=== PATIENT | male | born 1980 | race Two or more races ===

== ENCOUNTER 2023-11-21 20:19 | Emergency (ER) | payer SELFPAY ==
--- NOTE | 2023-11-21 20:29 | ECG_ITS ---
Test Reason : UNRESPONSIVE Blood Pressure : / mmHG Vent. Rate : 098 BPM Atrial Rate : 098 BPM P-R Int : 126 ms QRS Dur : 088 ms QT Int : 350 ms P-R-T Axes : 074 067 066 degrees QTc Int : 446 ms Normal sinus rhythm Normal ECG No previous ECGs available Referred By: Generic ED Physician Electronically Signed By:GIUSEPPE TORRES
[2023-11-21 20:32] VITALS: BP 111/71; BP 112/72; PULSE 100; RESP 24; TEMP 36.7; O2SAT 85; O2SAT 99; BMI 22.7
[2023-11-21 20:32] LABS: Glucose, Whole Blood 88 mg/dL (60-115)
--- NOTE | 2023-11-21 20:32 | ED.GENADULT ---
HPI - General Adult General Chief complaint: Overdose Stated complaint: SEIZURE Time Seen by Provider: 11/21/23 20:29 History of Present Illness ED Provider: Dr. Hope HPI narrative: 43 y/o M patient; PMH opioid use disorder on methadone, heroin use disorder; presents from home via EMS with report of unresponsive episode. Per EMS, patient's friend called 911 when he was seen to stiffen up and have generalized shaking. This was not described as tonic clonic. He did not have tongue bitting or incontinence. EMS provide Versed 2mg IV twice. The patient was noted t become apneic with approx 6 respirations per minute. Patient seen immediately as he was being bagged with a BVM by EMS in the hallway. Noted to be apneic with approx 6 breaths a minute. Pinpoint pupils bilaterally. He was provided Narcan 0.4mg IV with immediate effect. The patient began breathing on his own and within 1 - 2 minutes was sitting up reporting he used a significant amount of heroin immediately prior to arrival. He also states he did not take his methadone today as he does not like to mix drugs . Related Data Previous Rx's ?Medication ?Instructions ?Recorded naloxone 4 mg/actuation nasal 4 mg intranasal Q3M PRN opioid 11/21/23 spray (Narcan) overdose #2 ea Allergies Allergy/AdvReac Type Severity Reaction Status Date / Time No Known Allergies Allergy Verified 11/21/23 20:37 Review of Systems Review of Systems: Yes all other systems are reviewed and are negative PMFSH Past Medical History Attestation statement: The following information was validated with the patient. Source: unable to obtain Social History Social History Do you have a plan to hurt others: No Plan Physical Exam ED Vital Signs: Vital Signs - 24 hr 11/21/23 20:32 Temperature 98.0 F Pulse Rate 100 Respiratory Rate 24 H Blood Pressure 111/71 Pulse Oximetry 99 Oxygen Delivery Method Room Air BMI result Body Mass Index 22.7 Const General: cooperative and no acute distress HENMT Head: Yes normal to inspection and Yes atraumatic Eyes General: appearance normal, both eyes and all related structures Pupils: Equal, round and reactive pupils present Neck Neck: Yes normal visual inspection, Yes full ROM, Yes supple and No tender Chest Chest palpation & inspection: normal inspection of the chest and normal palpation of entire chest wall Resp Effort & Inspection: normal respiratory effort, able to speak in complete sentences, no cough and no respiratory distress Auscultation: clear to auscultation bilaterally Cardio Rate: regular rate Rhythm: regular rhythm Peripheral pulses: Peripheral pulses 2+ throughout GI Inspection: Yes normal to inspection, No Abdominal wall edema and No distended Palpation (GI): Soft to palpation, not firm, nontender, no guarding and not rigid Auscultation: normal bowel sounds Back/Spine/Pelvis Back: No back tenderness Neuro Cranial nerves: Yes Equal, round and reactive pupils present Course Course Course Narrative: Patient is now awake and alert. Will plan on period of observation on end-tital to ensure he will not need further narcan. Plan: Transition care to Dr. Grace pending re-evaluation and disposition Condition: stable Medical Decision Making Lab Data Labs: Lab Results 11/21/23 11/21/23 11/21/23 Range/Units 20:27 20:28 20:41 Hold Purple Top SEE NOTE Hold Blue Top SEE NOTE VBG pH 7.29 L (7.32-7.43) VBG pCO2 51 mmHg VBG pO2 210 mmHg VBG HCO3 25 (22-26) mmol/L VBG O2 Saturation 99.0 % VBG Base Excess -1.6 mmol/L POC Glucose 88 (60-115) mg/dL Hold Green Top See Note Hold Yellow Top Cancelled Critical Care Time Critical Care Time Critical Care Time: Yes Total Critical Care Time: 38 Attestation: Total critical care time: Approximately?38?minutes Due to a high probability of clinically significant, life threatening deterioration, the patient required my highest level of preparedness to intervene emergently and I personally spent this critical care time directly and personally managing the patient. This critical care time included obtaining a history; examining the patient; pulse oximetry; ordering and review of studies; arranging urgent treatment with development of a management plan; evaluation of patient's response to treatment; frequent reassessment; and, discussions with other providers. This critical care time was performed to assess and manage the high probability of imminent, life-threatening deterioration that could result in multi-organ failure. It was exclusive of separately billable procedures and treating other patients? Discharge Plan Discharge Clinical Impression: Drug overdose Patient Disposition: Still a Patient Instructions: Adult Overdose (ED) Additional Instructions: As we discussed, you were seen today when you stopped breathing due to a drug overdose. You required narcan to start breathing again. Highly recommend you stop your recreational drug use. Please follow up with your PCP within the next 1 - 2 days for re-evaluation and to discuss your recent emergency department visit. Prescriptions: New naloxone [Narcan] 4 mg/actuation spray,non-aerosol 4 mg intranasal Q3M PRN (Reason: opioid overdose) Qty: 2 0RF Rx Instructions: spray 1 dose into ONE nostril; alternate nostrils w each dose until help arrives
[2023-11-21 20:40] VITALS: RESP 34
[2023-11-21 20:44] LABS: VBG Base Excess -1.6 mmol/L; VBG HCO3 25 mmol/L (22-26); VBG pCO2 51 mmHg; VBG pH 7.29 (7.32-7.43); VBG pO2 210 mmHg
[2023-11-21 22:15] VITALS: BP 100/66; PULSE 69; RESP 10; TEMP 36.8; O2SAT 96
--- NOTE | 2023-11-21 22:24 | MHC.EDTECH ---
This Tech assumed care of this pt upon arrival. Pt came in by EMS unresponsive as Woody Hare. PT belongings were cut off for cardiac lead placement and EKG. Pt given NARCAN and is now responsive. RKG done and handed to a provider bloodwork sent to the lab for processing
[2023-11-22 00:44] VITALS: BP 119/73; PULSE 76; RESP 12; TEMP 36.8; O2SAT 95
--- NOTE | 2023-11-22 03:38 | PC.NURSE ---
Late entry: PT arrived via ems for unresponsiveness/possible seizure. PT friend called ems to report pt fell unconscious and when EMS arrive they noted pt to be in full status seizure, locked but not tonic clonic. 4mg of versed given in field pt then stopped breathing. PT arrived unconscious, and being bagged at 6 breaths per minute. Narc .4mg given in ED. Pt then became responsive, a/ox2, breathing on room air. EKG submitted. PT drowsy and unsteady on his feet at this time. Plan is for pt to become more alert and wake before discharge home
[2023-11-22 04:00] VITALS: RESP 18
--- NOTE | 2023-11-22 05:49 | PC.NURSE ---
PT not SI/HI/AH/VH, psychiatric assessment not applicable.
--- NOTE | 2023-11-22 08:53 | PC.NURSE ---
Care of Pt assumed at change of shift. Pt resting comfortably with eye closed. Cardiac monitoring applied, NAD noted at this time. Pt to be seen by Care Team. Awaiting disposition.
--- NOTE | 2023-11-22 09:40 | PC.NURSE ---
Pt awake at this time and requesting food. Pt provided with food options and is eating quietly in stretcher. CT to see with management accountant present.
--- NOTE | 2023-11-22 11:12 | MHC.RECOVRN ---
Met with pt in ED12 along with hourly sign language interpreter. Presenting Problem: Per RN note, Pt arrived via ems for unresponsiveness/possible seizure. PT friend called ems to report pt fell unconscious and when EMS arrive they noted pt to be in full status seizure, locked but not tonic clonic. 4mg of versed given in field pt then stopped breathing. PT arrived unconscious, and being bagged at 6 breaths per minute. Narc .4mg given in ED. Pt then became responsive, a/ox2, breathing on room air. Precipitating Factors: Pt reports he is currently receiving methadone through [facility], 40 mg daily x 2 months. Pt reports he did not receive his dose for 2 days and was offered 1 bag heroin/fentanyl. Pt reports he used this bag, IN, which resulted in overdose. Substances currently using: heroin/fentanyl occaisonally cocaine, INH, daily, unknown amounts as he typically shares with other people UDS not performed. Treatment History (include when, what type of service, response to treatment): [facility] admission x 1, unknown date Any history of self harm or suicide attempt(s)? *Family history of substance use (past or present): *Behavioral Health Treatment History: *Current Concerns: *HIV, HCV, TB Risk: At Risk or Not at Risk Treatment Recommendations/Plan:
--- NOTE | 2023-11-22 11:16 | HO.SUDE ---
Met with pt in ED12 along with steel layout worker. Presenting Problem: Per RN note, Pt arrived via ems for unresponsiveness/possible seizure. PT friend called ems to report pt fell unconscious and when EMS arrive they noted pt to be in full status seizure, locked but not tonic clonic. 4mg of versed given in field pt then stopped breathing. PT arrived unconscious, and being bagged at 6 breaths per minute. Narc .4mg given in ED. Pt then became responsive, a/ox2, breathing on room air. Precipitating Factors: Pt reports he is currently receiving methadone through [facility], 40 mg daily x 2 months. Pt reports he did not receive his dose for 2 days and was offered 1 bag heroin/fentanyl. Pt reports he used this bag, IN, which resulted in overdose. Substances currently using: heroin/fentanyl occaisonally cocaine, INH, daily, unknown amounts as he typically shares with other people UDS not performed. Pt reports one other overdose, unsure of when. Treatment History: [facility] admission x 1, unknown date Any history of self harm or suicide attempt(s)? suicide attempt in 2005 in [place] *Family history of substance use (past or present): Denies family hx [place]. *Behavioral Health Treatment History: Reports admissions, including [facility]. Unsure of dates or how many admissions. *Current Concerns: none, denies current SI *HIV, HCV, TB Risk: At Risk Treatment Recommendations/Plan: Plan for pt to continue with [facility] and reach out to t/w if questions or concerns arise. Will be sent home with take home Narcan.
[2023-11-22 11:21] VITALS: BP 110/70; PULSE 85; RESP 16; TEMP 36.8; O2SAT 99
[2023-11-22] MEDS: Naloxone HCl Nasal TAKE HOME 4 MG SPRAY 8 MG NOSTRILALT (11:22)
[2023-11-22 11:32] VITALS: BP 110/70; PULSE 85; RESP 16; TEMP 36.8; O2SAT 99
== END 2023-11-22 11:47 | disposition home or self-care (01) ==
PROVIDERS: Emergency Medicine; Emergency Provider Emergency Medicine
DX: T40.1X1A Poisoning by heroin, accidental (unintentional), initial encounter (principal); R56.9 Unspecified convulsions; R40.4 Transient alteration of awareness; Y92.89 Other specified places as the place of occurrence of the external cause; Z79.899 Other long term (current) drug therapy
CPT/HCPCS: 36415; 82803; 82947; 93005; 99283; 99285

== ENCOUNTER → 2023-11-21 20:29 | Outpatient (BNV) | payer SELFPAY | PROVIDERS: Emergency Provider Emergency Medicine; Visit Provider Internal Medicine | DX: R56.9 Unspecified convulsions (principal) | CPT/HCPCS: 93010 ==

== ENCOUNTER 2024-07-07 16:58 | Emergency (ER) | payer MEDICAID, SELFPAY ==
[2024-07-07 17:06] VITALS: BP 109/70; PULSE 84; RESP 16; TEMP 36.8; O2SAT 97; BMI 24.3
--- NOTE | 2024-07-07 17:13 | ED.GENADULT ---
HPI - General Adult General Chief complaint: ETOH/Substance Use Stated complaint: back pain Time Seen by Provider: 07/07/24 17:01 Source: patient Mode of arrival: EMS Limitations: no limitations History of Present Illness ED Provider: HPI narrative: Patient's with history of substance abuse and Chronic back pain was found standing outside the gas station says that he used 1 bag of heroin no history of IV drug use no fever no chills no other significant complaint no recent injury Related Data Previous Rx's ?Medication ?Instructions ?Recorded naloxone 4 mg/actuation nasal 4 mg intranasal Q3M PRN opioid 11/21/23 spray (Narcan) overdose #2 ea Allergies Allergy/AdvReac Type Severity Reaction Status Date / Time No Known Allergies Allergy Verified 07/07/24 17:10 Review of Systems Review of Systems: Yes all other systems are reviewed and are negative [facility] Social History Social History Unable to assess alcohol history related to: Refusing to respond Use of substances other than those prescribed or required for medical reasons: Refusing to respond Substance Use Type: Heroin Advance Directives: No Advance Directives Information Provided: No Do you have a plan to hurt others: No Plan Physical Exam ED Vital Signs: Vital Signs - 24 hr 07/07/24 17:06 07/07/24 18:33 07/07/24 20:07 Temperature 98.3 F 97.6 F 97.6 F Pulse Rate 84 73 71 Respiratory Rate 16 12 20 Blood Pressure 109/70 126/79 131/86 Pulse Oximetry 97 97 99 Oxygen Delivery Method Room Air Room Air Room Air 07/07/24 22:22 07/07/24 22:34 Temperature 97.4 F 97.4 F Pulse Rate 70 70 Respiratory Rate 16 16 Blood Pressure 132/89 132/89 Pulse Oximetry 93 93 Oxygen Delivery Method Room Air Room Air BMI result Body Mass Index 24.3 Appearance: Alert. Oriented X3. No acute distress. Falling asleep Eyes: PERRLA, No Nystagmus HEENT: Pharynx normal. Oral Mucosa moist atraumatic normocephalic Neck: Normal inspection. Neck supple. CVS: Normal heart rate and rhythm. Pulses normal. Respiratory: No respiratory distress. Equal air entry bilateral, no wheezing/rales/rhonchi Abdomen: Soft and nontender. Bowel sounds are present, no mass palpable, no CVA tenderness Back: diffuse tenderness , no midline tenderness Skin: Skin warm and dry. Normal skin color. Normal skin turgor. Extremities: No lower extremity edema. No calf tenderness no IVDA track durand Neuro: Oriented X 3. No motor deficit. No sensory deficit.No cerebellar signs , cranial nerves II-XII intact Medical Decision Making Medical Decision Making MDM Narrative: Patient with opiate use disorder does not want any help denies any significant psychiatric problems stable vitals ambulatory at the time of discharge. Patient has refused to give us a urine sample Discharge Plan Discharge Clinical Impression: Opiate abuse, continuous Patient Disposition: Home, Self-Care Instructions: Opioid Use Disorder (ED) Additional Instructions: Stop using heroin and other Follow with detoxOpiate use disorder You were seen in our Emergency Department today for treatment of opiate use disorder. You may have been dosed with medication for opiate use disorder (MOUD) in the form of suboxone or methadone. You may experience feeling some withdrawal symptoms and this is normal. The? dose in the Emergency Department is a starting dose and meant to be titrated up once you follow up with a clinic. Please do not feel discouraged, it is a process. The nurse has reviewed with you where to follow up and what information to bring with you, to continue treatment. You also may have been given naloxone (narcan) to take home with you. This medication is used to potentially treat opiate overdose. If you decide you want to stop or cut down on how much you?re using, you can call or walk into our outpatient Addiction Treatment office: [facility] (M-F 9am-5p) [address] [place] [address], [address] [phone] You may have been provided with safer injection?items, please take time to take care of YOU and your health. Use new supplies whenever possible to lessen the chances of infections and other illnesses.? ?If you need more supplies, please go [facility],? [address] [place] [address] OR you can call or text to coordinate delivery of safer supplies. You were also provided a list of several treatment providers in the area.? If you experience any worsening symptoms you cannot control please return to the ED or call 911. Please follow up at your next appointment. Things to look out for are fevers, chest pain, shortness of breath, severe pain, dizziness, fainting or any other concerns. Prescriptions: No Action naloxone [Narcan] 4 mg/actuation spray,non-aerosol 4 mg intranasal Q3M PRN (Reason: opioid overdose) Qty: 2 0RF Rx Instructions: spray 1 dose into ONE nostril; alternate nostrils w each dose until help arrives Interventions: ED Discharge Assessment Last Done: 07/07/24 22:34 Discharge Date/Time: 07/07/24 22:36 Print Language: Bermudian
--- NOTE | 2024-07-07 17:15 | PC.NURSE ---
Security at bedside at this time, safety search completed.
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
[2024-07-07 18:33] VITALS: BP 126/79; PULSE 73; RESP 12; TEMP 36.4; O2SAT 97
[2024-07-07 20:07] VITALS: BP 131/86; PULSE 71; RESP 20; TEMP 36.4; O2SAT 99
--- NOTE | 2024-07-07 20:18 | PC.NURSE ---
Pt continues to sleep soundly on stretcher. Awoken w/ shake & name, falling right back to sleep.
--- NOTE | 2024-07-07 22:20 | PC.NURSE ---
Pt awake and eating food, awaiting DC paperwork from provider.
[2024-07-07 22:22] VITALS: BP 132/89; PULSE 70; RESP 16; TEMP 36.3; O2SAT 93
[2024-07-07 22:34] VITALS: BP 132/89; PULSE 70; RESP 16; TEMP 36.3; O2SAT 93
--- NOTE | 2024-07-07 22:36 | PC.NURSE ---
pt walked out of dept w/ a steady gait.
== END 2024-07-07 22:36 | disposition home or self-care (01) ==
PROVIDERS: Emergency Provider Internal Medicine
DX: F19.10 Other psychoactive substance abuse, uncomplicated (principal)
CPT/HCPCS: 99282; 99284

== ENCOUNTER 2024-08-23 09:24 | Emergency (ER) | payer MEDICAID, SELFPAY ==
--- OUTSIDE RECORDS SUMMARY | 2024-08-09 09:00 | XMS_ITS ---
Author Organization [facility] Address [address] [place], [place] [id number] Care Team Providers Care Carriage Dogger Name Role Phone Ingridjustin Paula Primary Care Provider Demetra Sterling Unavailable [phone] REASON FOR VISIT BH; follow up, Symptom screening by [facility] staff pre entrance to clinic Encounters Encounter Location Date Provider Diagnosis [id number] [place], [place] [phone] 08/09/2024 Demetra Sterling Encounter for screening for COVID-19 Z11.52 Assessments Encounter Date Diagnosis (ICD Code) Assessment Notes Treatment Notes Treatment Clinical Notes Section Notes 08/09/2024 Encounter for screening for COVID-19 (ICD-10 - [...] you are having concerning symptoms for COVID-19. 08/09/2024 Other Plan Of Treatment Treatment Notes Assessment [...] you are having concerning symptoms for COVID-19. Next Appt Details Provider Name:Demetra Sterling, 09/19/2024 10:30:00 AM, [address] [place] [address], [phone], Provider Name:Paula perdomo, 09/19/2024 11:00:00 AM, [address] [place] [address], [phone], Progress Notes * LIJl MOSSDOB :1980 (44 yo M)Acc No.[id number]:08/09/2024 Progress Notes Patient: Jl BRAVO Provider: Victorina Sterling PMHNP-BC :1980 A ge:44 Y S ex:Male Date:08/09/2024 Address:[address] [place] [address] ( verify address), [phone] Pcp:Paula Villagran Subjective: * Chief Complaints: * 1 . BH; follow up. 2. Symptom screening by [facility] staff pre entrance to clinic. * HPI: G eneral: Symptom Screen: - Fever in the last [...] If so where and why? RN/MA:. * ROS: N o acute C/P no acute SOB, No problem with urine, No heartburn or abdominal pain. Endorses being able to climb one fight of stairs without stopping due to SOB, Mood: stable, appetite: good, sleeping well. Denies new skin rashes. * Medical History: Objective: * Vitals: * Examination: P sychiatry: MassPat Review as appropriate R mani today 08/09/2024 , no entries. Assessment: * Assessment: 1. E ncounter for screening for COVID-19 - Z11.52 (Primary) Plan: * Treatment: * Images: Billing Information: * Visit Code: * Procedure Codes: Care Plan Details* * Electronic signature of LAURIE Schilling on 08/23/2024 at 10:36 AM EDT Sign off status: Pending * Provider: ELIOT PerkinsP- Date: 08/09/2024 Generated for Dontrell cowart/Laquita/Alycia on: 0 08/23/2024 10:36 AM EDT History and Physical Notes * Examination Category Sub-Category Detail Notes Category Not es Psychiatry MassPat Review as appropriate Re viewed today 08/09/2024 , no entries
[2024-08-23 09:32] VITALS: BP 111/79; PULSE 102; O2SAT 94
[2024-08-23 09:46] VITALS: BP 111/90; PULSE 113; RESP 18; TEMP 37.4; O2SAT 94; BMI 25.1
[2024-08-23 09:59] VITALS: PULSE 101; O2SAT 95
--- NOTE | 2024-08-23 10:05 | ED_ITS ---
HPI - Psych General Chief Complaint: ETOH/Substance Use Stated Complaint: DRUG USE Time Seen by Provider: 08/23/24 09:27 Source: patient, EMS, old records reviewed and resident care coordinator Mode of arrival: EMS Limitations: altered mental status History of Present Illness ED Provider: EDDIE GORE Narrative: 44 yo male at [facility] today they called 911 as he was nodding off. No trauma seen. When asked about substance abuse he stares off then will not answer. Did not give EMS his name but on arrival here with resident care coordinator he knew name/. He denies any issues. He urinated in toilet on arrival. He states he is fine. We have seen him in 2024 for opiate abuse and in 2023 for overdose Onset (ago): unknown Relieving factors: none Exacerbating factors: none Context: other Associated psychiatric symptoms: none Associated symptoms: denies other symptoms Treatments prior to arrival: none Related Data Previous Rx's ?Medication ?Instructions ?Recorded naloxone 4 mg/actuation nasal 4 mg intranasal Q3M PRN opioid 11/21/23 spray (Narcan) overdose #2 ea Allergies Allergy/AdvReac Type Severity Reaction Status Date / Time No Known Allergies Allergy Verified 08/23/24 13:30 Review of Systems 2 Review of Systems: ROS unable to be obtained due to altered mental status [facility] Past Medical History Source: unable to obtain (AMS) Medical History (Updated 08/23/24 @ 13:25 by Mitzi Bowden DO) Active substance abuse Social History Social History (Updated 08/23/24 @ 10:07 by Mitzi Bowden DO) Unable to assess alcohol history related to: Refusing to respond Patient Tobacco Use Status: Tobacco use Unknown Substance Use Type: Heroin Advance Directives: No Advance Directives Information Provided: No Physical Exam 2 Vital Signs: Vital Signs: Last Vital Signs Temp 97.9 F 08/23/24 13:32 Pulse 82 08/23/24 13:32 Resp 14 08/23/24 13:32 BP 101/77 08/23/24 13:32 Pulse Ox 98 08/23/24 13:32 O2 Del Method Room Air 08/23/24 13:32 BMI result Body Mass Index 25.1 Appearance: awake and oriented to person and place but staring off and needs repeat prompting. No acute distress. Eyes: Pupils equal, round and reactive to light. staring off at times ENT: Pharynx normal. atraumat no signs of head trauma Neck: Normal inspection. Neck supple. CVS: Normal heart rate and rhythm. Pulses normal. Respiratory: No respiratory distress. Breath sounds normal. Abdomen: Soft and nontender. Skin: Skin warm and dry. Normal skin color. R 3rd finger knuckle superficial abrasion Extremities: No lower extremity edema. walking and no pain with ROM of arms Neuro: Oriented X 2 moving all ext no focal deficits, able to ambulate Medications Administered Discontinued Medications Generic Name Dose Route Start Last Admin Trade Name Grayson PRN Reason Stop Dose Admin Naloxone HCl 8 mg 08/23/24 11:44 08/23/24 13:31 Naloxone Hcl Nasal Take Home 4 Mg [place] NOSTRILALT 08/23/24 11:45 8 mg ONCE ONE Administration Medical Decision Making Medical Decision Making [facility] Narrative: 44 yo male wtih known hx of opiate abuse here with nodding off at [facility] he has no signs of head trauma and denies SI. I am going to order labs and monitor until more awake. Seen for same in past. Differential Diagnosis Differential Diagnoses: The differential diagnosis associated with the presentation includes substance abuse, dehydration, no signs of head trauma to suggest ICH Admission/Observation Consideration of admission/observation: Escalation of care including admission/observation considered awake and stable for DC, oriented x 3, appropriate and eating lunch declines SUDe no need for narcan will DC narcan home he admits to using on top of methadone due to having a lower dose Lab Data [facility] Lab Attestation statement: I reviewed the patient's lab results. 08/23/24 10:11 08/23/24 10:11 Labs: Lab Results 08/23/24 08/23/24 08/23/24 Range/Units 10:11 11:17 13:22 WBC 5.2 (4.8-10.8) X10*3/uL RBC 4.66 (4.60-5.80) X10*6/uL Hgb 15.1 (14.0-18.0) g/dl Hct 41.7 L (42.0-52.0) % MCV 89.5 (80.0-98.0) fL MCH 32.4 (27.0-33.0) pg MCHC 36.2 H (31.0-36.0) g/dl RDW 13.5 (11.0-16.0) % Plt Count 205 (160-400) X10*3/uL MPV 8.7 L (9.4-12.4) fL Immature Gran % (Auto) 0.4 (0.0-0.4) % Neut % (Auto) 62.4 (45-73) % Lymph % (Auto) 25.5 (20-40) % Steele % (Auto) 8.8 (2-11) % Eos % (Auto) 2.7 (0-4) % Baso % (Auto) 0.2 (0-2) % Lymph # (Auto) 1.3 (1.2-4.9) X10*3/uL Steele # (Auto) 0.5 (0.1-1.2) X10*3/uL Eos # (Auto) 0.1 (0.0-0.4) X10*3/uL Baso # (Auto) 0.0 (0.0-0.2) X10*3/uL Abs Immat Gran (auto) 0.02 (0.00-0.03) X10*3/uL Absolute Neuts (auto) 3.3 (2.0-8.3) x10*3/uL Absolute Nucleated RBC 0.000 (0.0-0.012) X10*3/uL Nucleated RBC % (auto) 0.0 (0.0-0.2) /100WBC Sodium 141 (135-145) mmol/L Potassium 3.9 (3.3-5.1) mmol/L Chloride 106 (96-108) mmol/L Carbon Dioxide 26 (22-29) mmol/L Anion Gap 13 (12-20) BUN 20 H (9-16) mg/dL Creatinine 0.89 (0.5-1.4) mg/dL Estim Creat Clear Calc 97.9 Estimated GFR > 60 Random Glucose 85 (60-115) mg/dL Calcium 8.9 (8.4-10.2) mg/dL Magnesium 2.3 (1.6-2.6) mg/dL Total Bilirubin 0.5 (0.0-1.0) mg/dL Direct Bilirubin 0.2 (0.0-0.5) mg/dL AST 15 (5-37) U/L ALT 11 (0-40) U/L Alkaline Phosphatase 48 (39-117) U/L Total Creatine Kinase 97 (38-174) U/L Total Protein 7.1 (6.5-8.0) g/dL Albumin 4.6 (3.5-5.0) g/dL Lipase 15 (8-78) U/L Urine Color Dark Yellow Urine Appearance Clear Urine pH 5.5 (5.0-9.0) Ur Specific [place] >= 1.030 H (1.005-1.025) Urine Protein Negative (Neg-Trace) mg/dL Urine Glucose (UA) Negative (Negative) mg/dL Urine Ketones 15 (Negative) mg/dL Urine Blood Negative (Negative) Urine Nitrite Negative (Negative) Ur Leukocyte Esterase Negative (Negative) Urine Opiates Screen POSITIVE H (Not Detect) Ur Buprenorphine Scrn Not Detected (Not Detect) ng/mL Ur Oxycodone Screen Not Detected (Not Detect) ng/mL Urine Methadone Screen Positive H (Not Detect) ng/mL Urine Fentanyl Screen POSITIVE H (Not Detect) Ur Barbiturates Screen Not Detected (Not Detect) Valproic Acid 79.0 (50.0-100.0) mcg/mL Ur Phencyclidine Scrn Not Detected (Not Detect) Ur Amphetamines Screen Not Detected (Not Detect) U Benzodiazepines Scrn Not Detected (Not Detect) Urine Cocaine Screen POSITIVE H (Not Detect) U Marijuana (THC) Screen Not Detected (Not Detect) Ethyl Alcohol < 10 mg/dL Independent Historian Clinical information obtained from an independent historian. History obtained from or confirmed by: EMS External Record Review External record reviewed: Outpatient record Discharge Plan Discharge Clinical Impression: Opiate use Patient Disposition: Home, Self-Care Instructions: Opioid Use Disorder (ED) Additional Instructions: Opiate use disorder You were seen in our Emergency Department today for treatment of opiate use disorder. You may have been dosed with medication for opiate use disorder (MOUD) in the form of suboxone or methadone. You may experience feeling some withdrawal symptoms and this is normal. The? dose in the Emergency Department is a starting dose and meant to be titrated up once you follow up with a clinic. Please do not feel discouraged, it is a process. The nurse has reviewed with you where to follow up and what information to bring with you, to continue treatment. You also may have been given naloxone (narcan) to take home with you. This medication is used to potentially treat opiate overdose. If you decide you want to stop or cut down on how much you?re using, you can call or walk into our outpatient Addiction Treatment office: [facility] (M-F 9am-5p) [address], [address] [phone] You may have been provided with safer injection?items, please take time to take care of YOU and your health. Use new supplies whenever possible to lessen the chances of infections and other illnesses.? ?If you need more supplies, please go [facility],? [address] [place] [address] OR you can call or text to coordinate delivery of safer supplies. You were also provided a list of several treatment providers in the area.? If you experience any worsening symptoms you cannot control please return to the ED or call 911. Please follow up at your next appointment. Things to look out for are fevers, chest pain, shortness of breath, severe pain, dizziness, fainting or any other concerns. Prescriptions: No Action naloxone [Narcan] 4 mg/actuation spray,non-aerosol 4 mg intranasal Q3M PRN (Reason: opioid overdose) Qty: 2 0RF Rx Instructions: spray 1 dose into ONE nostril; alternate nostrils w each dose until help arrives Interventions: ED Discharge Assessment Last Done: 08/23/24 13:32 Discharge Date/Time: 08/23/24 13:35 Print Language: Irish
[2024-08-23 10:16] LABS: MANUAL DIFF FLAG NO
[2024-08-23 10:18] LABS: Hematocrit 41.7 % (42.0-52.0); Hemoglobin 15.1 g/dl (14.0-18.0); Imm Gran Abs Auto 0.02 X10*3/uL (0.00-0.03); Imm Gran Pct Auto 0.4 % (0.0-0.4); Lymphocytes Absolute Auto 1.3 X10*3/uL (1.2-4.9); Mean Corpuscular HGB Conc 36.2 g/dl (31.0-36.0); Mean Corpuscular Hemoglobin 32.4 pg (27.0-33.0); Mean Corpuscular Volume 89.5 fL (80.0-98.0); NRBC Abs Auto 0.000 X10*3/uL (0.0-0.012); NRBC Pct Auto 0.0 /100WBC (0.0-0.2); Platelet Count 205 X10*3/uL (160-400); Red Blood Count 4.66 X10*6/uL (4.60-5.80); White Blood Count 5.2 X10*3/uL (4.8-10.8)
[2024-08-23 10:58] LABS: Alanine Aminotransferase 11 U/L (0-40); Albumin Level 4.6 g/dL (3.5-5.0); Alkaline Phosphatase 48 U/L (39-117); Anion Gap 13 (12-20); Aspartate Amino Transferase 15 U/L (5-37); Blood Urea Nitrogen 20 mg/dL (9-16); Calcium 8.9 mg/dL (8.4-10.2); Carbon Dioxide 26 mmol/L (22-29); Chloride 106 mmol/L (96-108); Creatinine Clr Calc Pharmacy 97.9; Estimated Glomerular Filt Rate > 60; Lipase 15 U/L (8-78); Magnesium 2.3 mg/dL (1.6-2.6); Potassium 3.9 mmol/L (3.3-5.1); Sodium 141 mmol/L (135-145); Total Protein 7.1 g/dL (6.5-8.0)
[2024-08-23 11:40] VITALS: BP 101/77; PULSE 82; RESP 14; O2SAT 98
[2024-08-23] MEDS: Naloxone HCl Nasal TAKE HOME 4 MG SPRAY 8 MG NOSTRILALT (13:31)
[2024-08-23 13:32] VITALS: BP 101/77; PULSE 82; RESP 14; TEMP 36.6; O2SAT 98
[2024-08-23 13:41] LABS: Appearance Urine Clear; Glucose Urine UA Negative (Negative); PH 5.5 (5.0-9.0); Specific Gravity - Urine >= 1.030 (1.005-1.025)
[2024-08-23 13:56] LABS: Cannabinoid Screen Urine Not Detected (Not Detect)
== END 2024-08-23 13:35 | disposition home or self-care (01) ==
PROVIDERS: Emergency Provider Emergency Medicine
DX: F11.10 Opioid abuse, uncomplicated (principal); Z51.81 Encounter for therapeutic drug level monitoring; Z79.899 Other long term (current) drug therapy; Z71.51 Drug abuse counseling and surveillance of drug abuser
CPT/HCPCS: 36415; 80048; 80076; 80164; 80307; 81003; 82550; 83690; 83735; 85025; 99283

== ENCOUNTER 2024-09-06 09:02 | Emergency (ER) | payer MEDICAID, SELFPAY ==
--- OUTSIDE RECORDS SUMMARY | 2024-08-09 09:00 | XMS_ITS ---
Author Organization [facility] Address [address] [place], [place] [phone] Care Team Providers Care Psychiatric Arnp Name Role Phone Ingridjustin Paula Primary Care Provider Demetra Sterling Unavailable [phone] REASON FOR VISIT BH; follow up, Symptom screening by [facility] staff pre entrance to clinic Encounters Encounter Location Date Provider Diagnosis [id number] [place], [place] [phone] 08/09/2024 Demetra Sterling Encounter for screening for [...] Details Provider Name:Demetra Sterling, 09/19/2024 10:30:00 AM, [address] [place] [address], [phone], Provider Name:Paula perdomo, 09/19/2024 11:00:00 AM, [address] [place] [address], [phone], Progress Notes * LIJl MOSSDOB :1980 (44 yo M)Acc No.[id number]:08/09/2024 Progress Notes Patient: Jl BRAVO Provider: Victorina Sterling PMHNP-BC :1980 A ge:44 Y S ex:Male Date:08/09/2024 Address:[address] [place] [address] ( verify address), [phone] Pcp:Paula Villagran Subjective: * Chief Complaints: * 1 . BH; follow up. 2. Symptom screening by [facility] staff pre entrance to clinic. * HPI: [...] * Electronic signature of LAURIE Schilling on 09/06/2024 at 09:54 AM EDT Sign off status: Pending * Provider: ELIOT PerkinsP- Date: 08/09/2024 Generated for Dontrell cowart/Laquita/Alycia on: 0 09/06/2024 09:54 AM EDT History and Physical Notes * Examination Category Sub-Category Detail Notes Category Not es Psychiatry MassPat Review as appropriate Re viewed today 08/09/2024 , no entries
--- NOTE | ~2024-09-06 | XR_ITS ---
EXAMINATION: XR CHEST CLINICAL INFORMATION: central chest pain COMPARISON: None available. TECHNIQUE: Frontal view of the chest was obtained. FINDINGS: The cardiac, hilar, and mediastinal contours are normal. The lungs are clear bilaterally. No pneumothorax or effusion. No focal osseous or soft tissue abnormality. XR/XR chest 1V IMPRESSION: No active pulmonary disease. Electronically signed by: Jose Guadalupe Inman MD 09/06/2024 10:17 AM EDT
--- NOTE | 2024-09-06 09:09 | ED_ITS ---
HPI - Overdose General Chief Complaint: Overdose Stated Complaint: OVERDOSE Time Seen by Provider: 09/06/24 09:03 Source: patient, EMS, RN notes reviewed and old records reviewed Mode of arrival: EMS Limitations: no limitations History of Present Illness ED Provider: Lenny Castillo PA-C HPI Narrative: 44 yo sj presents to the ER for evaluation after an overdose. patient states he was at home outside when he used drugs this morning and he does not remember what happened afterward. He was given 12 mg of Narcan by police and he woke up. seems as though a bystander had called EMS as he was found unresponsive. He does not know who may have called EMS. he states he has overdose several times in the past. He reports taking his 45 mg of methadone this morning. He sniffs heroin, does not inject. He reports sternal chest pain that is worse with palpation since arrival to the hospital. Unsure if he received compressions in the field. He denies any associated shortness of breath, no abdominal pain, nausea, vomiting, diarrhea. No fever or chills MD complaint: accidental overdose Related Data Previous Rx's ?Medication ?Instructions ?Recorded naloxone 4 mg/actuation nasal 4 mg intranasal Q3M PRN opioid 11/21/23 spray (Narcan) overdose #2 ea Allergies Allergy/AdvReac Type Severity Reaction Status Date / Time No Known Allergies Allergy Verified 09/06/24 09:16 Review of Systems 2 Review of Systems: Yes all other systems are reviewed and are negative [facility] Past Medical History Medical History (Updated 09/06/24 @ 12:52 by JUAN MANUEL Bedoya) Active substance abuse Social History Social History (Updated 08/23/24 @ 10:07 by Mitzi Bowden DO) Unable to assess alcohol history related to: Refusing to respond Patient Tobacco Use Status: Tobacco use Unknown Substance Use Type: Heroin Physical Exam 2 Exam: Exam: Appearance: lethargic, middle-aged male, appears older than stated age, disheveled and unkempt Head: normocephalic, atraumatic. Eyes: Pupils equal, round and reactive to light. ENT: Pharynx normal. No tonsillar swelling or exudate. Neck: Normal inspection. Neck supple. CVS: Normal heart rate and rhythm. Pulses normal. sternal tenderness on palpation, no crepitus or deformity Respiratory: No respiratory distress. Breath sounds normal. Abdomen: Soft and nontender. +BS x4 Skin: Skin warm and dry. Normal skin color. Normal skin turgor. No rashes. Extremities: No lower extremity edema. No joint swelling. Neuro/psych: lethargic but arouses to voice, nonfocal neurologically Normal speech and cognition. Vital Signs: Vital Signs: Last Vital Signs Temp 97.8 F 09/06/24 12:57 Pulse 60 09/06/24 12:57 Resp 15 09/06/24 12:57 BP 122/78 09/06/24 12:57 Pulse Ox 97 09/06/24 12:57 O2 Del Method Room Air 09/06/24 12:57 BMI result Body Mass Index 22.0 Medications Administered Discontinued Medications Generic Name Dose Route Start Last Admin Trade Name Grayson PRN Reason Stop Dose Admin Naloxone HCl 8 mg 09/06/24 12:45 09/06/24 12:59 Naloxone Hcl Nasal Take Home 4 Mg Lincoln NOSTRILALT 09/06/24 12:46 8 mg ONCE ONE Administration Medical Decision Making Medical Decision Making [facility] Narrative: 44-year-old male with history of substance use disorder on methadone maintenance with multiple overdoses in the past presents to the ER for evaluation after he overdosed at home and received 12 mg of Narcan in the field. He arrives to the ER awake, alert, oriented x3. He reports sternal chest pain that is worse with palpation. He is hemodynamically stable and oxygenating well on room air. Pain is not worse with deep inspiration. Chest x-ray is clear. EKG is unremarkable. Troponin is negative. Patient was monitored in the ER for over 3 hours. He remained stable and alert. Tolerating p.o.. No suspicion for ACS or PE. Reassuring his chest pain is reproducible on exam. At this point he is declining any need for recovery or detox. He is stable for discharge home with take-home Narcan Differential Diagnosis Differential Diagnoses: The differential diagnosis associated with the presentation includes unintentional opiate overdose, polysubstance overdose, chest pain due to possible chest compressions, rib fracture, pneumonia, costochondritis, low suspicion for PE Admission/Observation Consideration of admission/observation: Escalation of care including admission/observation considered Lab Data [facility] Lab Attestation statement: I reviewed the patient's lab results. stable anemia, negative troponin 09/06/24 10:18 09/06/24 10:18 Labs: Lab Results 09/06/24 Range/Units 10:18 WBC 5.3 (4.8-10.8) X10*3/uL RBC 4.30 L (4.60-5.80) X10*6/uL Hgb 13.5 L (14.0-18.0) g/dl Hct 38.7 L (42.0-52.0) % MCV 90.0 (80.0-98.0) fL MCH 31.4 (27.0-33.0) pg MCHC 34.9 (31.0-36.0) g/dl RDW 13.5 (11.0-16.0) % Plt Count 178 (160-400) X10*3/uL MPV 8.9 L (9.4-12.4) fL Immature Gran % (Auto) 0.2 (0.0-0.4) % Neut % (Auto) 59.7 (45-73) % Lymph % (Auto) 24.6 (20-40) % [place] % (Auto) 10.7 (2-11) % Eos % (Auto) 4.6 H (0-4) % Baso % (Auto) 0.2 (0-2) % Lymph # (Auto) 1.3 (1.2-4.9) X10*3/uL [place] # (Auto) 0.6 (0.1-1.2) X10*3/uL Eos # (Auto) 0.2 (0.0-0.4) X10*3/uL Baso # (Auto) 0.0 (0.0-0.2) X10*3/uL Abs Immat Gran (auto) 0.01 (0.00-0.03) X10*3/uL Absolute Neuts (auto) 3.1 (2.0-8.3) x10*3/uL Absolute Nucleated RBC 0.000 (0.0-0.012) X10*3/uL Nucleated RBC % (auto) 0.0 (0.0-0.2) /100WBC Sodium 138 (135-145) mmol/L Potassium 4.1 (3.3-5.1) mmol/L Chloride 106 (96-108) mmol/L Carbon Dioxide 26 (22-29) mmol/L Anion Gap 10 L (12-20) BUN 7 L (9-16) mg/dL Creatinine 0.68 (0.5-1.4) mg/dL Estim Creat Clear Calc 134.6 Estimated GFR > 60 Random Glucose 83 (60-115) mg/dL Calcium 8.2 L D (8.4-10.2) mg/dL Troponin I High Sens < 2.7 (<3.5-35.0) ng/L Independent Interpretation I performed an independent interpretation of an: EKG and Plain X-Ray Interpretation: chest x-ray with no pneumothorax, no appreciated rib fracture, agree with radiology read EKG with normal sinus rhythm, ventricular rate 69 beats per minute, no ST segment elevations or depressions, artifact in V5 Radiology Impression Discussion of test interpretation with radiology: I have reviewed the radiologist's reading. Independent Historian Clinical information obtained from an independent historian. History obtained from or confirmed by: EMS External Record Review External record reviewed: Outpatient record, Prior outpatient labs and Prior outpatient radiology Prescription Management I considered prescription management with: Other (narcan) Chronic Conditions Patient?s care impacted by: Other ( opioid use disorder) Social Determinants Patient?s care significantly limited by Social Determinants of Health including: Alcoholism and drug addiction in family and Problems related to primary support group Critical Care Time Critical Care Time Critical Care Time: No Discharge Plan Discharge Clinical Impression: Drug overdose Qualifiers: Encounter type: initial encounter Injury intent: accidental or unintentional Q ualified Code(s): T50.901A - Poisoning by unspecified drugs, medicaments and biological substances, accidental (unintentional), initial encounter Patient Disposition: Home, Self-Care Instructions: Adult Overdose (ED) Additional Instructions: Overdose You were seen in our Emergency Department for an overdose today. You received narcan in order to reverse the effects of overdose. Narcan only lasts about 45 min to 1 hour in the system. You may have been given narcan to take home with you today, please keep it near you if you are going to use again, so others can use it if needed.? The number one risk for fatal overdose is using alone? [facility] is a 24/7 hotline where you can be on the phone with someone while you use, and they can call for help if they suspect an overdose: [phone] Things to look out for when you leave include severe vomiting or diarrhea, headaches, muscle cramps, fever, coughing, chest pain, or if you feel so short of breath you cannot walk to the bathroom. Please seek care and return any time for worsening symptoms.? You may have been provided with safer injection?items, please take time to take care of YOU and your health. Use new supplies whenever possible to lessen the chances of infections and other illnesses.? If you need more supplies, please go [facility],? [address] [place] [address] OR you can call or text to coordinate delivery of safer supplies. If you decide you want to stop or cut down on how much you?re using, please call the numbers on the list provided to you or you can come to our outpatient Addiction Treatment office [facility] (M-F 9am-5p) [address] [place] [address], [address] [phone] Prescriptions: No Action naloxone [Narcan] 4 mg/actuation spray,non-aerosol 4 mg intranasal Q3M PRN (Reason: opioid overdose) Qty: 2 0RF Rx Instructions: spray 1 dose into ONE nostril; alternate nostrils w each dose until help arrives Interventions: ED Discharge Assessment Last Done: 09/06/24 12:57 Discharge Date/Time: 09/06/24 13:16 Print Language: Malay
[2024-09-06 09:13] VITALS: BP 129/87; BP 132/76; PULSE 80; PULSE 94; RESP 16; TEMP 36.5; O2SAT 99; BMI 22.0
--- NOTE | 2024-09-06 09:17 | ECG_ITS ---
Test Reason : chest pain Blood Pressure : */* mmHG Vent. Rate : 69 BPM Atrial Rate : * BPM P-R Int : * ms QRS Dur : 90 ms QT Int : 428 ms P-R-T Axes : * 59 37 degrees QTcB Int : 458 ms Normal sinus rhythm Normal ECG When compared with ECG of 21-Nov-2023 20:24, No significant changes seen Referred By: Elmira Castillo Electronically Signed By: MARGUERITE EDMONDS MD
--- NOTE | 2024-09-06 09:42 | PC.NURSE ---
pt denies SI and HI. Environmental safety check complete, pt cleared to keep belongings
--- NOTE | 2024-09-06 10:10 | MHC.EDTECH ---
delay on EKG do to EKG machine being used nurse aware
[2024-09-06 10:23] LABS: MANUAL DIFF FLAG NO
[2024-09-06 10:27] LABS: Hematocrit 38.7 % (42.0-52.0); Hemoglobin 13.5 g/dl (14.0-18.0); Imm Gran Abs Auto 0.01 X10*3/uL (0.00-0.03); Imm Gran Pct Auto 0.2 % (0.0-0.4); Lymphocytes Absolute Auto 1.3 X10*3/uL (1.2-4.9); Mean Corpuscular HGB Conc 34.9 g/dl (31.0-36.0); Mean Corpuscular Hemoglobin 31.4 pg (27.0-33.0); Mean Corpuscular Volume 90.0 fL (80.0-98.0); NRBC Abs Auto 0.000 X10*3/uL (0.0-0.012); NRBC Pct Auto 0.0 /100WBC (0.0-0.2); Platelet Count 178 X10*3/uL (160-400); Red Blood Count 4.30 X10*6/uL (4.60-5.80); White Blood Count 5.3 X10*3/uL (4.8-10.8)
[2024-09-06 10:39] LABS: Anion Gap 10 (12-20); Blood Urea Nitrogen 7 mg/dL (9-16); Calcium 8.2 mg/dL (8.4-10.2); Carbon Dioxide 26 mmol/L (22-29); Chloride 106 mmol/L (96-108); Creatinine Clr Calc Pharmacy 134.6; Estimated Glomerular Filt Rate > 60; Potassium 4.1 mmol/L (3.3-5.1); Sodium 138 mmol/L (135-145)
[2024-09-06 10:56] LABS: Troponin-I High Sensitivity < 2.7 ng/L (<3.5-35.0)
[2024-09-06 12:12] VITALS: BP 122/78; PULSE 60; RESP 15; O2SAT 97
[2024-09-06 12:57] VITALS: BP 122/78; PULSE 60; RESP 15; TEMP 36.6; O2SAT 97
[2024-09-06] MEDS: Naloxone HCl Nasal TAKE HOME 4 MG SPRAY 8 MG NOSTRILALT (12:59)
== END 2024-09-06 13:16 | disposition home or self-care (01) ==
PROVIDERS: Physician Assistant; Emergency Provider Emergency Medicine Emergency Medical Services
DX: T40.1X1A Poisoning by heroin, accidental (unintentional), initial encounter (principal); R40.4 Transient alteration of awareness; R07.1 Chest pain on breathing; Y92.9 Unspecified place or not applicable; Z79.899 Other long term (current) drug therapy
CPT/HCPCS: 36415; 71045; 80048; 84484; 85025; 93005; 99284; 99285

== ENCOUNTER → 2024-09-06 09:17 | Outpatient (BNV) | payer MEDICAID, SELFPAY | PROVIDERS: Emergency Provider Emergency Medicine Emergency Medical Services; Visit Provider Internal Medicine Cardiovascular Disease | DX: R07.9 Chest pain, unspecified (principal) | CPT/HCPCS: 93010 ==

== ENCOUNTER → 2024-09-06 10:04 | Outpatient (BNV) | payer MEDICAID, SELFPAY | PROVIDERS: Emergency Provider Emergency Medicine Emergency Medical Services; Visit Provider Radiology Diagnostic Radiology | DX: R07.2 Precordial pain (principal) | CPT/HCPCS: 71045 ==